=== PATIENT | male | born 1965 | race African-American/Black ===

== ENCOUNTER 2024-10-31 02:40 | Inpatient (IN) | payer MEDICARE ==
[~2024-10-31] VITALS: Ht 188 cm; Wt 147.7 kg
[2024-10-31 03:51] LABS: PLATELET COUNT (AUTO) 273 K/uL (150-450); RED BLOOD CELL COUNT(AUTO) 4.03 MIL/uL (4.50-5.90); RED CELL DISTRIBUTION WIDTH 16.3 % (11.5-14.5); WHITE BLOOD COUNT (AUTO) 7.8 K/uL (4.5-11.0)
[2024-10-31 04:00] LABS: CALCIUM, TOTAL 8.8 mg/dL (8.8-10.5); CREATININE 1.01 mg/dL (0.60-1.30); GLOMERULAR FILTR. RATE CALC > 60 mL/min (>60); GLUCOSE,RANDOM 131 mg/dL (70-110); SODIUM SERUM 140 mmol/L (136-145); UREA NITROGEN, BLOOD 14 mg/dL (7-18)
[2024-10-31 04:04] LABS: ASPARTATE AMINOTRANSFERASE 21.0 U/L (15-37); CREATINE KINASE, TOTAL ONLY 217.0 U/L (39-308); TOTAL PROTEIN, SERUM 7.7 g/dL (6.4-8.2)
[2024-10-31 04:17] LABS: COVID AG,FIA SOURCE NASAL SWAB
[2024-10-31 04:21] LABS: TROPONIN I-HIGH SENSITIVITY 100 ng/L (<76)
[2024-10-31 05:11] LABS: INFLUENZA TYPE A NEGATIVE FOR TYPE A (NEGATIVE); INFLUENZA TYPE B NEGATIVE FOR TYPE B (NEGATIVE); SARS-COV2 (COVID) ANTIGEN,FIA Negative (Negative)
[2024-10-31] MEDS: MAGNESIUM SULFATE 2 GM/WATER 50 ML IV ONE (05:13)
[2024-10-31] MEDS: FUROSEMIDE 40 MG/4 ML VIAL IVP ONE (05:13)
[2024-10-31] MEDS: POTASSIUM CHLORIDE 20 MEQ ER TABLET PO ONE (05:36)
[2024-10-31 07:01] LABS: TROPONIN I-HIGH SENSITIVITY 91 ng/L (<76)
[2024-10-31] MEDS: HEPARIN SODIUM,PORCINE 5,000 UNITS/ML VIAL SQ SCH (07:23)
[2024-10-31] MEDS ORDERED: MAGNESIUM HYDROXIDE SUSPENSION 30 ML UDCUP PO PRN (07:30)
[2024-10-31] MEDS ORDERED: ACETAMINOPHEN 325 MG TABLET PO PRN (07:30)
[2024-10-31] MEDS ORDERED: MAGNESIUM SULFATE 4 GM/WATER 100 ML IV PRN (07:30)
[2024-10-31] MEDS ORDERED: POTASSIUM CHLORIDE 20 MEQ ER TABLET PO PRN (07:30)
[2024-10-31] MEDS ORDERED: POTASSIUM CHL 10 MEQ/WATER 50 ML IV PRN (07:30)
[2024-10-31] MEDS ORDERED: INSULIN LISPRO 100 UNITS/ML SQ PRN (07:30)
[2024-10-31] MEDS ORDERED: MAGNESIUM OXIDE 400 MG TABLET PO PRN (07:30)
[2024-10-31] MEDS ORDERED: DEXTROSE 50%-WATER 25 GM/50 ML SYRINGE IVP PRN (07:30)
[2024-10-31] MEDS ORDERED: ONDANSETRON HCL 4 MG/2 ML VIAL IVP PRN (07:30)
[2024-10-31] MEDS ORDERED: MAGNESIUM SULFATE 2 GM/WATER 50 ML IV PRN (07:30)
[2024-10-31] MEDS: FAMOTIDINE 20 MG TABLET PO SCH (09:08)
[2024-10-31] MEDS: DOCUSATE SODIUM 100 MG CAPSULE PO SCH (09:08)
[2024-10-31] MEDS: ASPIRIN 81 MG CHEWABLE TABLET PO SCH (09:09)
[2024-10-31 10:34] VITALS: BP 130/104; PULSE 118; RESP 20; TEMP 97.7; O2SAT 95
[2024-10-31] MEDS: METOPROLOL TARTRATE 25 MG TABLET PO SCH (11:58)
[2024-10-31 15:37] VITALS: BP 159/74; PULSE 60; RESP 20; TEMP 98.1; O2SAT 97
[2024-10-31] MEDS ORDERED: FUROSEMIDE 20 MG/2 ML VIAL IVP SCH (17:00)
[2024-10-31 19:35] VITALS: BP 148/104; PULSE 91; RESP 20; TEMP 98.1; O2SAT 98
[2024-10-31] MEDS: FUROSEMIDE 40 MG/4 ML VIAL IVP SCH (20:32)
[2024-10-31 21:55] LABS: GLUCOMETER DEV NAME(LOC) 5N.1D; GLUCOSE,POINT OF CARE 105 MG/DL (70-110)
[2024-10-31 21:55] LABS: GLUCOMETER DEV NAME(LOC) 5N.1D; GLUCOSE,POINT OF CARE 119 MG/DL (70-110)
[2024-10-31 21:56] LABS: GLUCOMETER DEV NAME(LOC) 5N.1D; GLUCOSE,POINT OF CARE 149 MG/DL (70-110)
[2024-11-01] VITALS (7 sets, daily range): BP systolic 99–127; BP diastolic 75–95; PULSE 56–89; RESP 18–20; TEMP 97.7–98.6; O2SAT 97–100
[2024-11-01 02:33] LABS: APPEARANCE,URINE CLEAR (CLEAR); GLUCOSE, URINE (UA) NEGATIVE (NEGATIVE); LEUKOCYTE ESTERASE ,URINE NEGATIVE (NEGATIVE); NITRATE,URINE NEGATIVE (NEGATIVE); OCCULT BLOOD,URINE NEGATIVE (NEGATIVE); PH,URINE DRUG SCREEN 5.5 (5.0-8.0); SPECIFIC GRAVITIY, URINE 1.013 (1.003-1.030)
[2024-11-01 02:39] LABS: ALCOHOL, URINE DRUG SCREEN NEGATIVE (NEGATIVE); AMPHET/METH SCREEN,URINE NEGATIVE (NEGATIVE); BARBITURATE SCREEN, URINE NEGATIVE (NEGATIVE); CANNABINOID SCREEN,URINE NEGATIVE (NEGATIVE); COCAINE SCREEN,URINE NEGATIVE (NEGATIVE); METHADONE SCREEN, URINE NEGATIVE (NEGATIVE)
[2024-11-01 06:55] LABS: GLUCOMETER DEV NAME(LOC) 5S.1D; GLUCOSE,POINT OF CARE 116 MG/DL (70-110)
[2024-11-01 07:00] LABS: PLATELET COUNT (AUTO) 258 K/uL (150-450); RED BLOOD CELL COUNT(AUTO) 3.83 MIL/uL (4.50-5.90); RED CELL DISTRIBUTION WIDTH 16.6 % (11.5-14.5); WHITE BLOOD COUNT (AUTO) 7.0 K/uL (4.5-11.0)
[2024-11-01] MEDS: LOSARTAN POTASSIUM 25 MG TABLET PO SCH (08:16)
[2024-11-01] MEDS: SPIRONOLACTONE 25 MG TABLET PO SCH (08:17)
[2024-11-01] MEDS: EMPAGLIFLOZIN 10 MG TABLET PO SCH (08:53)
[2024-11-01] MEDS: PERFLUTREN PROTEIN-A MICROSPHERES 0.22 MG/ML 3 ML VIAL IVP ONE (09:54)
[2024-11-01 11:26] LABS: CALCIUM, TOTAL 8.6 mg/dL (8.8-10.5); CREATININE 0.83 mg/dL (0.60-1.30); GLOMERULAR FILTR. RATE CALC > 60 mL/min (>60); GLUCOSE,RANDOM 110 mg/dL (70-110); SODIUM SERUM 140 mmol/L (136-145); UREA NITROGEN, BLOOD 15 mg/dL (7-18)
[2024-11-01 12:20] LABS: GLUCOMETER DEV NAME(LOC) 5S.1D; GLUCOSE,POINT OF CARE 111 MG/DL (70-110)
[2024-11-01 12:49] LABS: TROPONIN I-HIGH SENSITIVITY 63 ng/L (<76)
[2024-11-01 19:02] LABS: GLUCOMETER DEV NAME(LOC) 5N.1D; GLUCOSE,POINT OF CARE 99 MG/DL (70-110)
[2024-11-02] VITALS (7 sets, daily range): BP systolic 110–128; BP diastolic 73–97; PULSE 64–96; RESP 18–19; TEMP 97.5–98.5; O2SAT 97–100
[2024-11-02 01:15] LABS: GLUCOMETER DEV NAME(LOC) 5N.1D; GLUCOSE,POINT OF CARE 126 MG/DL (70-110)
[2024-11-02] MEDS: AMIODARONE HCL 200 MG TABLET PO SCH (04:25)
[2024-11-02 06:30] LABS: PLATELET COUNT (AUTO) 263 K/uL (150-450); RED BLOOD CELL COUNT(AUTO) 3.87 MIL/uL (4.50-5.90); RED CELL DISTRIBUTION WIDTH 16.2 % (11.5-14.5); WHITE BLOOD COUNT (AUTO) 6.9 K/uL (4.5-11.0)
[2024-11-02 06:48] LABS: CALCIUM, TOTAL 8.9 mg/dL (8.8-10.5); CREATININE 1.01 mg/dL (0.60-1.30); GLOMERULAR FILTR. RATE CALC > 60 mL/min (>60); GLUCOSE,RANDOM 114 mg/dL (70-110); SODIUM SERUM 141 mmol/L (136-145); UREA NITROGEN, BLOOD 19 mg/dL (7-18)
[2024-11-02] MEDS: SPIRONOLACTONE 25 MG TABLET PO SCH (08:40)
[2024-11-02] MEDS: ALBUTEROL SULFATE 2.5 MG/0.5 ML NEB SOLUTION NEB PRN (12:19)
[2024-11-02 12:36] LABS: GLUCOMETER DEV NAME(LOC) 5N.1D; GLUCOSE,POINT OF CARE 110 MG/DL (70-110)
[2024-11-02 18:40] LABS: GLUCOMETER DEV NAME(LOC) 5S.1D; GLUCOSE,POINT OF CARE 87 MG/DL (70-110)
[2024-11-02] MEDS: POTASSIUM CHLORIDE 20 MEQ ER TABLET PO ONE (19:28)
[2024-11-02 22:15] LABS: GLUCOMETER DEV NAME(LOC) 5S.1D; GLUCOSE,POINT OF CARE 122 MG/DL (70-110)
[2024-11-03 00:33] VITALS: BP 105/65; PULSE 62; RESP 20; TEMP 97.7; O2SAT 97
[2024-11-03 04:28] VITALS: BP 116/84; PULSE 103; RESP 20; TEMP 97.7; O2SAT 100
[2024-11-03 08:20] LABS: GLUCOMETER DEV NAME(LOC) 5S.2D; GLUCOSE,POINT OF CARE 102 MG/DL (70-110)
[2024-11-03 08:35] LABS: CALCIUM, TOTAL 8.9 mg/dL (8.8-10.5); CREATININE 1.24 mg/dL (0.60-1.30); GLOMERULAR FILTR. RATE CALC > 60 mL/min (>60); GLUCOSE,RANDOM 123 mg/dL (70-110); SODIUM SERUM 142 mmol/L (136-145); UREA NITROGEN, BLOOD 21 mg/dL (7-18)
[2024-11-03 09:14] VITALS: BP 121/83; PULSE 50; RESP 18; TEMP 97.3; O2SAT 99
[2024-11-03 11:07] VITALS: BP 102/65; PULSE 85; RESP 18; TEMP 97.5; O2SAT 97
[2024-11-03 16:00] VITALS: BP 127/78; PULSE 65; RESP 19; TEMP 97.9; O2SAT 100
[2024-11-03 17:06] LABS: GLUCOMETER DEV NAME(LOC) 5S.2D; GLUCOSE,POINT OF CARE 107 MG/DL (70-110)
[2024-11-03 17:06] LABS: GLUCOMETER DEV NAME(LOC) 5S.1D; GLUCOSE,POINT OF CARE 86 MG/DL (70-110)
[2024-11-04] VITALS (8 sets, daily range): BP systolic 111–137; BP diastolic 64–93; PULSE 61–99; RESP 15–19; TEMP 97.3–98.5; O2SAT 91–100
[2024-11-04 07:30] LABS: PLATELET COUNT (AUTO) 281 K/uL (150-450); RED BLOOD CELL COUNT(AUTO) 3.83 MIL/uL (4.50-5.90); RED CELL DISTRIBUTION WIDTH 16.3 % (11.5-14.5); WHITE BLOOD COUNT (AUTO) 6.0 K/uL (4.5-11.0)
[2024-11-04 07:43] LABS: CALCIUM, TOTAL 9.1 mg/dL (8.8-10.5); CREATININE 1.37 mg/dL (0.60-1.30); GLOMERULAR FILTR. RATE CALC > 60 mL/min (>60); GLUCOSE,RANDOM 97 mg/dL (70-110); SODIUM SERUM 141 mmol/L (136-145); UREA NITROGEN, BLOOD 28 mg/dL (7-18)
[2024-11-04 08:01] LABS: GLUCOMETER DEV NAME(LOC) 5S.2D; GLUCOSE,POINT OF CARE 137 MG/DL (70-110)
[2024-11-04 08:01] LABS: GLUCOMETER DEV NAME(LOC) 5S.2D; GLUCOSE,POINT OF CARE 106 MG/DL (70-110)
[2024-11-04 15:16] LABS: GLUCOMETER DEV NAME(LOC) 5S.2D; GLUCOSE,POINT OF CARE 109 MG/DL (70-110)
[2024-11-04 18:06] LABS: GLUCOMETER DEV NAME(LOC) 5S.1D; GLUCOSE,POINT OF CARE 113 MG/DL (70-110)
[2024-11-05 02:56] LABS: GLUCOMETER DEV NAME(LOC) 5S.1D; GLUCOSE,POINT OF CARE 106 MG/DL (70-110)
[2024-11-05 05:20] VITALS: BP 119/85; PULSE 97; RESP 20; TEMP 97.9; O2SAT 92
[2024-11-05] MEDS: FUROSEMIDE 40 MG TABLET PO SCH (07:54)
[2024-11-05 08:11] LABS: GLUCOMETER DEV NAME(LOC) 5S.2D; GLUCOSE,POINT OF CARE 138 MG/DL (70-110)
[2024-11-05 08:20] VITALS: BP 137/84; PULSE 75; RESP 19; TEMP 98.2; O2SAT 98
[2024-11-05 09:17] LABS: CALCIUM, TOTAL 9.1 mg/dL (8.8-10.5); CREATININE 1.03 mg/dL (0.60-1.30); GLOMERULAR FILTR. RATE CALC > 60 mL/min (>60); GLUCOSE,RANDOM 114 mg/dL (70-110); SODIUM SERUM 139 mmol/L (136-145); UREA NITROGEN, BLOOD 26 mg/dL (7-18)
[2024-11-05 11:35] VITALS: BP 140/91; PULSE 65; RESP 18; TEMP 98.4; O2SAT 98
[2024-11-05 11:49] VITALS: BP 140/91; PULSE 77; RESP 18; TEMP 98.1; O2SAT 98
[2024-11-05] MEDS ORDERED: FURO40TA5 PO (11:58)
[2024-11-05] MEDS ORDERED: CARV3 PO (11:58)
[2024-11-05] MEDS ORDERED: EMPA10TA3 PO (11:58)
[2024-11-05] MEDS ORDERED: ASPI-1450 PO (11:58)
[2024-11-05] MEDS ORDERED: LOSA-417 PO (11:58)
[2024-11-05] MEDS ORDERED: SPIR-37 PO (11:58)
[2024-11-05] MEDS ORDERED: AMIO200T8 PO (11:58)
[2024-11-05 17:35] LABS: GLUCOMETER DEV NAME(LOC) 5S.2D; GLUCOSE,POINT OF CARE 115 MG/DL (70-110)
== END 2024-11-05 14:50 | disposition home or self-care (01) | DRG 291 ==
LOC: EMS 02:41 → EDH 06:29 → 5S 10:15
PROVIDERS: ADMIT Hospitalist; ATTEND Hospitalist
DX: I11.0 Hypertensive heart disease with heart failure (principal); I50.23 Acute on chronic systolic (congestive) heart failure; J96.01 Acute respiratory failure with hypoxia; I47.19 Other supraventricular tachycardia; I47.20 Ventricular tachycardia, unspecified; Z59.00 Homelessness unspecified; Z68.41 Body mass index [BMI] 40.0-44.9, adult; E66.01 Morbid (severe) obesity due to excess calories; J44.9 Chronic obstructive pulmonary disease, unspecified; E11.9 Type 2 diabetes mellitus without complications; Z20.822 Contact with and (suspected) exposure to COVID-19; E83.42 Hypomagnesemia; E87.6 Hypokalemia; Z79.82 Long term (current) use of aspirin; Z79.84 Long term (current) use of oral hypoglycemic drugs; Z79.899 Other long term (current) drug therapy; I87.8 Other specified disorders of veins; T14.8XXA Other injury of unspecified body region, initial encounter; X58.XXXA Exposure to other specified factors, initial encounter; Y93.89 Activity, other specified; Y92.89 Other specified places as the place of occurrence of the external cause; Y99.8 Other external cause status
CPT/HCPCS: 71045; 80048; 80076; 80307; 81003; 82040; 82550; 82962; 83735; 83880; 84484; 85025; 85610; 85730; 87804; 93005; 93306; 93970; 94640; 99291; C8924; G0378; J1644; J1938; J3475; 36415-L1; 36415-TC